=== PATIENT | female | born 1990 | race Caucasian/White ===

== ENCOUNTER 2016-02-24 08:42 | Emergency (ER) | payer BC ==
[2016-02-24 09:12] VITALS: BP 133/89
[2016-02-24] MEDS ORDERED: PROMETHAZINE HCL 50 MG/ML AMPUL IM ONE ×2 (09:31→09:37)
[2016-02-24] MEDS ORDERED: KETOROLAC TROMETHAMINE 60 MG/2 ML VIAL IM ONE ×2 (09:31→09:37)
--- NOTE | 2016-02-24 09:44 | ERNOTE ---
[id number] 02/24/16 09:13 Source: patient Exam Limitations: no limitations - Immun/Allergies/Home Medications Immunizations: IMMUNIZATION HX Immunizations Up to Date Yes History of Influenza Vaccine No Hx Pneumococcal Vaccination No Allergies/Adverse Reactions: Allergies morphine Adverse Reaction (Verified 02/24/16 09:12) Itching Home Medications: HOME MEDICATIONS Ibuprofen [Motrin] 200 - 800 mg PO Q6H PRN 01/07/15 [Last Taken Unknown] LORazepam [Ativan] 1 mg PO TID PRN #14 tab 01/03/16 [Last Taken Unknown] Amox Tr/Potassium Clavulanate [Augmentin 875-125 Tablet] 875 mg PO Q12H #20 tab 02/24/16 [Last Taken Unknown] - History of Present Illness Narrative: Patient has had right sided headache for five days now. The pain is mainly behind her right eye and maxillary sinus. She has had occasional headaches but no history of migraines. Two weeks ago she was treated for a bronchitis with amoxicillin and when the cough did not resolve with a zpack, steroids and an inhaler. Her cough is much better. She has had more nasal drainage on the left. Date (Duration): 02/19/16 Context Headache: Present: new onset. Absent: recent head injury < 24 hrs ago Quality: Present: pressure Headache frequency: Present: occasional headaches Modifying Factors - (Worsens): Reports: movement Associated Symptoms: Reports: vomiting - twice, once each yesterday and today, nasal congestion, nasal drainage, facial pain. Denies: fever/chills, fatigue, weakness, numbness/tingling, vision changes, dizziness, loss of consciousness, neck pain/stiffness, speech problems Exacerbated by:: Reports: movement. Denies: light, noise Prior Treament: Reports: recently seen. Denies: similar symptoms before, currently on antibiotics Review of Systems - Review of Systems Constitutional: Present: See HPI, recent illness EYE: Absent: double vision, vision changes ENT: Present: nose pain, nose congestion, nasal drainage. Absent: ear pain, ear discharge, sore throat Respiratory: Present: cough. Absent: shortness of breath Cardiology: Absent: chest pain Gastrointestinal/Abdominal: Present: vomiting. Absent: diarrhea, abdominal pain Genitourinary: Present: no symptoms reported Skin: Absent: rash Neurological: Present: See HPI, headache. Absent: weakness, numbness - Patient's Past Medical History Patient History - Medical: Hypothyroidism, Migraines, Obesity, Other Patient History - Cardiac/Respiratory: No pertinent hx Patient History - Cancer: No Hx of Cancer Patient History - Surgical Procedures: T & A, Other - Family History Grandmother-Maternal Family History - Cardiac/Respiratory: Hypertension Grandfather-Maternal Family History - Cardiac/Respiratory: Hypertension Father Family History - Cardiac/Respiratory: Hypertension - Social History Living Situations: spouse Smoking Status: Never smoker Have you smoked in the past 12 months: No Alcohol Use: none Drug Use: none - Immunizations Immunizations Up to Date: Yes Physical Exam - Physical Exam General Appearance: Present: wd/wn, alert, no apparent distress, obese Eye Exam: Normal inspection: bilateral, PERRL: bilateral, EOMI: bilateral Ears, Nose, Throat: Present: nasal congestion, normal pharynx, other - tenderness over right maxillary sinus. Absent: pharyngeal swelling, tonsillar swelling Neck: Present: normal inspection. 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 Vital Signs: Vital Signs 02/24/16 09:00 Temperature 36.7 C Pulse Rate 95 Respiratory 14 Rate Blood Pressure 133/89 O2 Sat by Pulse 97 Oximetry - Progress/Reassessment Chief Complaint: Headache Departure Clinical Impression: Sinusitis, acute maxillary Qualifiers: Recurrence: not specified as recurrent Qualified Code(s): J01.00 - Acute maxillary sinusitis, unspecified - Departure Disposition: Home self-care Condition: Good Instructions: Sinusitis, Adult, [id number] Additional Instructions: continue to use over the counter sudafed and ibuprofen try afrin nasal spray (but not for more than three days) try over the counter nasonex (nasal spray) Referrals: Debi Guido FNP [Primary Care Provider] - Prescriptions: Amox Tr/Potassium Clavulanate [Augmentin 875-125 Tablet] 875 mg PO Q12H #20 tab
== END 2016-02-24 09:57 | disposition home or self-care (01) ==
LOC: ER 08:42
DX: J01.00 Acute maxillary sinusitis, unspecified (principal)

== ENCOUNTER 2016-02-25 18:15 | Emergency (ER) | payer BC ==
[2016-02-25 19:14] VITALS: BP 131/88
--- NOTE | 2016-02-25 21:13 | ERNOTE ---
Medical Problem HPI - Narrative Date of Service: 02/25/16 - General Chief Complaint: General Assessment Time Seen by Provider: 02/25/16 21:01 Source: patient Exam Limitations: no limitations - Immun/Allergies/Home Medications Immunizations: IMMUNIZATION HX Immunizations Up to Date Yes History of Influenza Vaccine No Hx Pneumococcal Vaccination No Allergies/Adverse Reactions: Allergies morphine Adverse Reaction (Verified 02/25/16 19:14) Itching Home Medications: HOME MEDICATIONS LORazepam [Ativan] 1 mg PO TID PRN #14 tab 01/03/16 [Last Taken Unknown] - History of Present History Narrative: Pt. comes in with c/o intermittent cough with SOB for a month. Pt. also noted that she had calf pain a month agoThat ws intermittent and resolved. Pt. has within the past week developed sinus congestion, and sore throat. Pt. went to her PCP and was placed on abx today and had labs and a CXR done. Pt. has a positive D Dimer and was notified by Dr Mederos to come for testing in the ED. Review of Systems - Review of Systems Constitutional: Present: no symptoms reported. Absent: recent illness, fever, chills, malaise EYE: Present: no symptoms reported ENT: Present: ear pain, nose congestion, nasal drainage, sore throat Respiratory: Present: shortness of breath, cough. Absent: orthopnea, wheezing Cardiology: Present: no symptoms reported. Absent: chest pain, palpitations, edema Gastrointestinal/Abdominal: Present: no symptoms reported. Absent: nausea, vomiting, diarrhea Genitourinary: Present: no symptoms reported. Absent: frequency, pain, dysuria , decreased urinary output Musculoskeletal: Present: no symptoms reported. Absent: back pain, joint pain Skin: Present: no symptoms reported. Absent: rash, change in color, change in hair/nails Neurological: Present: no symptoms reported. Absent: headache, dizziness/light- headedness, weakness, numbness, tingling Endocrine: Present: no symptoms reported Hematologic/Lymphatic: Present: no symptoms reported All Other Systems: All systems neg except as marked - Patient's Past Medical History Patient History - Medical: Hypothyroidism, Migraines, Obesity, Other Patient History - Cardiac/Respiratory: No pertinent hx Patient History - Cancer: No Hx of Cancer Patient History - Surgical Procedures: T & A, Other - Family History Grandmother-Maternal Family History - Cardiac/Respiratory: Hypertension Grandfather-Maternal Family History - Cardiac/Respiratory: Hypertension Father Family History - Cardiac/Respiratory: Hypertension - Social History Living Situations: home Alcohol Use: none Drug Use: none Physical Exam - Physical Exam General Appearance: Present: wd/wn, alert, no apparent distress Eye Exam: Normal inspection: bilateral, PERRL: bilateral, EOMI: bilateral Ears, Nose, Throat: Present: hearing grossly normal, nasal congestion, pharyngeal erythema. Absent: abnormal TM (R), abnormal TM (L) Neck: Present: normal inspection, nontender. Absent: lymphadenopathy (R), lymphadenopathy (L) Respiratory: Present: no respiratory distress, no accessory muscle use, chest nontender, lungs clear, decreased breath sounds Cardiovascular/Chest: Present: regular rate, rhythm, no murmur, normal peripheral pulses Gastrointestinal/Abdominal: Present: normal bowel sounds, nontender, nondistended, soft, no organomegaly Back Exam: Present: normal inspection Extremity Exam: Present: normal inspection Neurological Exam: Present: alert, oriented, normal mood/affect, no motor/ sensory deficits Skin Exam: Present: normal color, warm/dry. Absent: pallor, skin rash ED Progress - Date and Time Seen: Date and Time: 02/25/16 22:16 Reviewed chest xray and labs done this morning 02/25/16 22:17 Pt. is already under treatment for bronchitis and I feel that this is the appropriate coarse of treatment for this pt. - Vital Signs Patient's Vital Signs:: I have reviewed the patient's vital signs. Vital Signs: Vital Signs 02/25/16 19:09 Temperature 37.1 C Pulse Rate 104 H Respiratory 12 Rate Blood Pressure 131/88 O2 Sat by Pulse 98 Oximetry - CT/Ultrasound CT/Ultrasound Narrative: CT negative for PE. - Progress/Reassessment Chief Complaint: General Assessment Departure - Departure Clinical Impression: Bronchitis Disposition: Home self-care Condition: Good Instructions: Acute Bronchitis, [id number] Additional Instructions: Please follow up with primary provider in 2-3 days. Referrals: Debi Guido FNP [Primary Care Provider] -
== END 2016-02-25 22:30 | disposition home or self-care (01) ==
LOC: ER 18:15
DX: J20.9 Acute bronchitis, unspecified (principal)

== ENCOUNTER 2016-09-30 17:16 | Emergency (ER) | payer BC ==
[2016-09-30] MEDS ORDERED: ONDANSETRON HCL/PF 2 MG/ML VIAL IV ONE (17:36)
[2016-09-30] MEDS ORDERED: KETOROLAC TROMETHAMINE 30 MG/ML VIAL IV ONE (17:36)
[2016-09-30] MEDS ORDERED: DIATRIZOATE MEGLUMINE, SODIUM 30 ML BTL PO ONE (17:36)
--- NOTE | 2016-09-30 17:40 | ERNOTE ---
Back Pain ER HPI Time Seen by Provider: 09/30/16 17:25 Source: patient Exam Limitations: no limitations Immunizations: IMMUNIZATION HX Immunizations Up to Date Yes History of Influenza Vaccine No Hx Pneumococcal Vaccination No Allergies/Adverse Reactions: Allergies morphine Adverse Reaction (Verified 09/30/16 17:30) Itching Home Medications: HOME MEDICATIONS Ciprofloxacin HCl [Cipro] 500 mg PO BID #20 tab 09/30/16 [Last Taken Unknown] Narrative: Patient has had intermittent periumbilical abdominal pain for a couple of weeks. Over the last two days her pain has been worse and constant. She vomited twice this morning and had one episode of diarrhea, she also started to have low back pain. She was seen in the clinic by Debi Guido, had labs and a abdominal Xray done. When her WBC came back elevated, she was called and told to come to the ER. She is sexually active, using condoms, ready to start period, HCG negative in clinic Timing: Reports: intermittent Quality/Severity: Reports: severe Recent Injury?: Reports: no Modifying Factors - (Worsens): Reports: supine position Associated Symptoms: Reports: nausea/vomiting. Denies: constipation/ incontinence, problems urinating Review of Systems - Review of Systems Constitutional: Absent: recent illness, fever ENT: Absent: nasal drainage, sore throat Respiratory: Absent: shortness of breath Cardiology: Absent: chest pain Gastrointestinal/Abdominal: Present: See HPI Genitourinary: Absent: frequency, dysuria Musculoskeletal: Present: See HPI, back pain Neurological: Absent: headache, weakness, numbness - Patient's Past Medical History Patient History - Medical: Hypothyroidism, Migraines, Obesity, Other Patient History - Cardiac/Respiratory: No pertinent hx Patient History - Cancer: No Hx of Cancer Patient History - Surgical Procedures: T & A, Other Patient History - Other: None - Family History Grandmother-Maternal Family History - Cardiac/Respiratory: Hypertension Grandfather-Maternal Family History - Cardiac/Respiratory: Hypertension Father Family History - Cardiac/Respiratory: Hypertension - Social History Living Situations: home Abuse History: No History of abuse Psych History: No pertinent hx Smoking Status: Never smoker Alcohol Use: none Drug Use: none - Immunizations Immunizations Up to Date: Yes Hx Pneumococcal Vaccination: No History of Influenza Vaccine: No Physical Exam - Physical Exam General Appearance: Present: wd/wn, alert, mild distress Respiratory: Present: no respiratory distress, normal breath sounds, no accessory muscle use, lungs clear Cardiovascular/Chest: Present: regular rate, rhythm, no murmur Gastrointestinal/Abdominal: Present: normal bowel sounds, nondistended, tenderness - mildly throughout, max periumbilical in in RLQ, McBurney sign, Psoas sign. Absent: Obturator sign Back Exam: Present: normal inspection, no CVA tenderness Neurological Exam: Present: alert, oriented, normal mood/affect, no motor/ sensory deficits Skin Exam: Present: normal color, warm/dry ED Progress - Results and Orders Patient's Lab Results:: I have reviewed the patient's lab results. - from clinic - Vital Signs Patient's Vital Signs:: I have reviewed the patient's vital signs. Vital Signs: Vital Signs 09/30/16 17:25 Temperature 38.2 C H Pulse Rate 138 H Respiratory 14 Rate Blood Pressure 157/100 O2 Sat by Pulse 97 Oximetry - CT/Ultrasound CT/Ultrasound Narrative: CT abdomen/pelvis: normal appendix, no acute findings - Progress/Reassessment Chief Complaint: Back Pain Progress Note-Subjective: 09/30/16 18:36 patient's pain better, tolerating po, denies need for more pain medications 09/30/16 20:42 discussed test results with patient and family, no clear source if infection, patient had two more episodes of diarrhea, consider gastroenteritis, will hold off on antibiotics, if not better fill rx for cipro in the morning Departure Clinical Impression: Gastroenteritis Abdominal pain Qualifiers: Abdominal location: periumbilical Qualified Code(s): R10.33 - Periumbilical pain - Departure Disposition: Home self-care Condition: Good Instructions: Abdominal Pain, Adult, [id number] Additional Instructions: if you are not better in the morning fill the prescription for the antibiotic Referrals: Debi Guido FNP [Primary Care Provider] - Prescriptions: Ciprofloxacin HCl [Cipro] 500 mg PO BID #20 tab
[2016-09-30] MEDS ORDERED: NORMAL SALINE 1,000 ML IV ONE (17:44)
[2016-09-30] MEDS ORDERED: KETOROLAC TROMETHAMINE 30 MG/ML VIAL ONE (17:49)
[2016-09-30] MEDS ORDERED: DIATRIZOATE MEGLUMINE, SODIUM 30 ML BTL ONE (17:49)
[2016-09-30] MEDS ORDERED: ONDANSETRON HCL/PF 2 MG/ML VIAL ONE (17:49)
[2016-09-30 18:18] LABS: Urine Bilirubin 1 mg/dl (NEGATIVE); Urine Blood 25 /ul (NEGATIVE); Urine Ketone 50 mg/dL (NEGATIVE); Urine Nitrite Negative (NEGATIVE); Urine Protein 30 mg/dL (NEGATIVE); Urine Urobilinogen Normal (NORMAL)
[2016-09-30 18:30] LABS: Urine Appearance Clear; Urine Bacteria 3+; Urine Color Yellow; Urine RBC None Seen /hpf (0-5); Urine WBC 0-5 /hpf (0-5)
[2016-09-30 18:33] LABS: Urine Mucus Many - 3+
[2016-09-30 21:30] VITALS: BP 148/96
== END 2016-09-30 20:54 | disposition home or self-care (01) ==
LOC: ER 17:16
DX: K52.9 Noninfective gastroenteritis and colitis, unspecified (principal); R10.33 Periumbilical pain
CPT/HCPCS: 74177; 81001; 87086; 96374; 96375; 99284; J2405